=== PATIENT | male | born 1965 | race Caucasian/White ===

== ENCOUNTER 2017-10-13 08:40 | Day surgery (SDC) | payer OTHER ==
[2017-10-13] MEDS ORDERED: MIDAZOLAM 1 MG/ML 2 ML INJ ×2 (11:40)
[2017-10-13] MEDS ORDERED: FENTAnyl 50 MCG/ML VIAL (11:43)
== END 2017-10-13 12:19 | disposition home or self-care (01) ==
LOC: GIL 08:40
DX: Z12.11 Encounter for screening for malignant neoplasm of colon (principal); K64.4 Residual hemorrhoidal skin tags; K64.8 Other hemorrhoids; K57.90 Diverticulosis of intestine, part unspecified, without perforation or abscess without bleeding
CPT/HCPCS: 45378